=== PATIENT | male | born 1965 | race Caucasian/White ===

== ENCOUNTER 2020-11-05 10:30 | Inpatient (IN) | payer MEDICAID ==
[2020-10-23 15:32] LABS: BASOPHILS % (AUTO) 0.6 % (0-1); EOSINOPHILS # (AUTO) 0.1 X10'3 (0-0.9); EOSINOPHILS % (AUTO) 1.5 % (0-6); LYMPHOCYTES # (AUTO) 2.1 X10'3 (1.1-4.8); LYMPHOCYTES % (AUTO) 26.2 % (21-51); MEAN CORPUSCULAR HEMOGLOBIN 30.7 PG (27.0-31.0); MEAN CORPUSCULAR HGB CONC 33.8 g/dL (33.0-36.5); MEAN CORPUSCULAR VOLUME 90.9 FL (78-98); MEAN PLATELET VOLUME 7.7 FL (7.4-10.4); MONOCYTES # (AUTO) 0.6 X10'3 (0-0.9); MONOCYTES % (AUTO) 7.8 % (2-12); NEUTROPHILS # (AUTO) 5.1 X10'3 (1.8-7.7); NEUTROPHILS % (AUTO) 63.9 % (42-75); PRE OP HEMATOCRIT 45.2 % (42.0-52.0); PRE OP HEMOGLOBIN 15.3 g/dL (14.0-17.9); PRE OP PLATELET COUNT 258 X10'3 (140-440); RED BLOOD COUNT 4.97 X10'6 (4.70-6.10); RED CELL DISTRIBUTION WIDTH 13.7 % (11.5-14.5)
[2020-10-23 15:50] LABS: ALBUMIN 3.9 G/DL (3.4-5.0); ALKALINE PHOSPHATASE 62 IU/L (46-116); BLOOD UREA NITROGEN 22 MG/DL (7-18); BUN/CREATININE RATIO 20.8 (5.4-32.0); CALCIUM 8.9 MG/DL (8.5-10.1); CHLORIDE 106 MMOL/L (99-107); CREATININE 1.06 MG/DL (0.60-1.10); PRE OP ALT 43 U/L (30-65); PRE OP ANION GAP 7 (8-16); PRE OP AST 16 U/L (10-37); PRE OP BILIRUB, TOTAL 0.4 MG/DL (0.0-1.0); PRE OP GLUCOSE 97 MG/DL (70-104); PRE OP SODIUM 141 MMOL/L (135-145); TOTAL CARBON DIOXIDE 27.6 MMOL/L (24-32); TOTAL PROTEIN 7.7 G/DL (6.4-8.2); eGFR 73 ML/MIN
[~2020-11-05] VITALS: Ht 190.5 cm; Wt 145.2 kg
[~2020-11-05 10:30] MED LIST: HYDR-4353 PO; ceFAZolin inj. 3,000 MG in normal saline 100ml IV soln 100 ML IV ONE; famotidine 20mg tablet PO ONE; ringers solution, lacted 1,000 ML IV SCH; vancomycin 1,500 MG in NS 300ml IV soln IV ONE
[2020-11-11] VITALS (20 sets, daily range): BP systolic 94–150; BP diastolic 54–85
[2020-11-11] MEDS ORDERED: ringers solution, lacted 1,000 ML IV SCH ×2 (05:00→09:50)
[2020-11-11] MEDS ORDERED: ceFAZolin inj. 3,000 MG in normal saline 100ml IV soln 100 ML IV ONE (05:30)
[2020-11-11] MEDS ORDERED: famotidine 20mg tablet PO ONE (05:30)
[2020-11-11] MEDS ORDERED: vancomycin 1,500 MG in NS 300ml IV soln IV ONE (05:30)
[2020-11-11] MEDS ORDERED: tetracaine 1% (10mg/ml) pres. free inj. ONE (08:31)
[2020-11-11] MEDS ORDERED: ketorolac trometh. 30mg/ml inj. ONE (08:43)
[2020-11-11] MEDS ORDERED: ROPIVAcaine 0.5% (5mg/ml) 30ml vial ONE (08:44)
[2020-11-11] MEDS ORDERED: sevoflurane 250ml liquid IH ONE (08:49)
[2020-11-11] MEDS ORDERED: LIDOcaine 1%/PF 5ML 10 MG/ML VIAL ONE (08:49)
[2020-11-11] MEDS ORDERED: morphine /PF 1mg/ml 10ml inj. ONE (09:00)
[2020-11-11] MEDS ORDERED: MIDAZolam 1mg/ml 10ml vial ONE (09:00)
[2020-11-11] MEDS ORDERED: NORMAL SALINE IV ONE ×2 (09:00→09:45)
[2020-11-11] MEDS ORDERED: TRANEXAMIC ACID IV ONE ×2 (09:00→09:45)
[2020-11-11] MEDS ORDERED: propofol inj 20 ML IV ONE ×3 (09:23)
[2020-11-11] MEDS ORDERED: diphenhydrAMINE 50 mg/ml inj ONE (09:34)
[2020-11-11] MEDS ORDERED: labetalol 20mg/4ml (5mg/ml) syringe IV PRN (09:50)
[2020-11-11] MEDS ORDERED: ondansetron/PF 4mg/2ml inj IV PRN ×3 (09:50→11:40)
[2020-11-11] MEDS ORDERED: ROPIVAcaine 0.2% (10 MG/5 ML) BOLUS INJECTION ADDCANAL PRN (09:50)
[2020-11-11] MEDS ORDERED: morphine 2 MG/ML inj. syringe IV PRN (09:50)
[2020-11-11] MEDS ORDERED: hydrALAZINE 20mg/ml inj. IV PRN (09:50)
[2020-11-11] MEDS ORDERED: diphenhydrAMINE 50 mg/ml inj IV PRN (09:50)
[2020-11-11] MEDS ORDERED: naloxone 2mg/2ml inj 2 MG in normal saline 500ml IV soln 500 ML IV PRN (09:50)
[2020-11-11] MEDS ORDERED: proCHLORperazine 10 MG/2 ml inj IV PRN (09:50)
[2020-11-11] MEDS ORDERED: morphine 4 MG/ML inj SYRINge IV PRN (09:50)
[2020-11-11] MEDS ORDERED: acetaminophen 1,000mg/100ml IV 100 ML IV PRN (09:50)
[2020-11-11] MEDS ORDERED: meperidine/PF 25mg/ml syringe IV PRN ×3 (09:50)
--- NOTE | 2020-11-11 11:39 | NUR ---
Report called to receiving nurse, Eliana DUDLEY. Transferred via [facility] bed Belongings . Special Issues communicated to receiving nurse. 18g to left hand with LR running at 100/hr. Dressing CDI, onq attached. Patient denies pain, offers no complaints. Education provided. Updated patient's sisterHenny. Addendum: 11/11/20 at 1359 by Angela Amador RN Time 1339 sent to floor
[2020-11-11] MEDS ORDERED: oxyCODONE IR 5mg (immed. release) tablet PO PRN (11:40)
[2020-11-11] MEDS ORDERED: diphenhydrAMINE 25mg capsule PO PRN ×2 (11:40)
[2020-11-11] MEDS ORDERED: HYDROmorphone 1 mg/ml syringe IV PRN (11:40)
[2020-11-11] MEDS ORDERED: acetaminophen 325mg tablet PO PRN (11:40)
[2020-11-11] MEDS ORDERED: HYDROmorphone inj. 0.5 MG/0.5 ML DISP.SYRIN IV PRN (11:40)
[2020-11-11] MEDS ORDERED: bisacodyl 10mg suppository rectal RC PRN (11:40)
[2020-11-11] MEDS ORDERED: magnesium hydroxide 30ml (MOM) UD suspension PO PRN (11:40)
--- NOTE | 2020-11-11 12:09 | NUR ---
Received from OR via hosptial bed, accompanied by Anesthesiologist Dr. Moreno and report given by Anesthesiolgist. 18g to left hand. OnQ attached to picco. cold pack and sleeve. Patient denies pain, denies N/V. Moves upper extremities. Numb to mid thigh.
[2020-11-11] MEDS: ROPIVAcaine 0.2%/PF PUMP/bolus 550 ML ADDCANAL SCH (12:37)
[2020-11-11] MEDS: acetaminophen 325mg tablet PO SCH ×2 (14:00→20:59)
[2020-11-11] MEDS: ceFAZolin/D5W- 1GM premix 50 ML IV SCH (16:11)
[2020-11-11] MEDS: potassium cl 20mEq in 1/2 NS 1,000 ML IV SCH ×2 (17:09→19:40)
--- NOTE | 2020-11-11 18:23 | NUR ---
Problems reprioritized. Patient report given, questions answered & plan of care reviewed with Hilda DUDLEY.
[2020-11-11] MEDS ORDERED: vancomycin/NS 1 GM ADD-VANTAGE 250 ML IV SCH (20:00)
[2020-11-11] MEDS ORDERED: sennosides 8.6mg tablet PO SCH (21:00)
[2020-11-12] VITALS: BP 123/73
[2020-11-12] MEDS: ceFAZolin/D5W- 1GM premix 50 ML IV SCH (00:30)
[2020-11-12] MEDS: acetaminophen 325mg tablet PO SCH ×2 (02:00→08:24)
[2020-11-12] MEDS: potassium cl 20mEq in 1/2 NS 1,000 ML IV SCH ×2 (03:40→11:40)
[2020-11-12] MEDS: oxyCODONE IR 5mg (immed. release) tablet PO PRN ×2 (05:49→12:07)
--- NOTE | 2020-11-12 06:14 | NUR ---
REPORT GIVEN TO LUIS ENRIQUE HOLLIS.
--- NOTE | 2020-11-12 06:35 | NUR ---
Patient in room [facility]. I have received report from LUIS ENRIQUE SILVESTRE and had the opportunity to ask questions and assume patient care.
[2020-11-12 06:37] LABS: BASOPHILS % (AUTO) 0.3 % (0-1); EOSINOPHILS # (AUTO) 0.2 X10'3 (0-0.9); HEMOGLOBIN 13.4 g/dl (14.0-17.9); LYMPHOCYTES # (AUTO) 1.5 X10'3 (1.1-4.8); LYMPHOCYTES % (AUTO) 19.7 % (21-51); MEAN CORPUSCULAR HEMOGLOBIN 31.2 PG (27.0-31.0); MEAN CORPUSCULAR HGB CONC 34.4 g/dL (33.0-36.5); MEAN CORPUSCULAR VOLUME 90.7 FL (78-98); MEAN PLATELET VOLUME 7.7 FL (7.4-10.4); MONOCYTES # (AUTO) 0.6 X10'3 (0-0.9); MONOCYTES % (AUTO) 8.1 % (2-12); NEUTROPHILS # (AUTO) 5.4 X10'3 (1.8-7.7); NEUTROPHILS % (AUTO) 69.9 % (42-75); PLATELET COUNT 215 X10'3 (140-440); RED CELL DISTRIBUTION WIDTH 13.2 % (11.5-14.5); WHITE BLOOD COUNT 7.7 X10'3 (4.5-11.0)
[2020-11-12 06:49] LABS: ANION GAP 5 (8-16); CHLORIDE 104 MMOL/L (99-107); POTASSIUM 3.9 MMOL/L (3.5-5.1); SODIUM 138 MMOL/L (135-145); TOTAL CARBON DIOXIDE 29.2 MMOL/L (24-32)
[2020-11-12 07:00] VITALS: BP 106/67
[2020-11-12] MEDS ORDERED: aspirin 325mg tablet PO SCH (08:30)
[2020-11-12] MEDS: ROPIVAcaine 0.2%/PF PUMP/bolus 550 ML ADDCANAL SCH (12:09)
--- NOTE | 2020-11-12 12:45 | NUR ---
DC INSTRUCTIONS GIVEN TO PT, QUESTIONS ANSWERED. IV REMOVED, CANULA INTACT. PT BLED, PRESSURE BANDAGE APPLIED. NEW ON Q BALL GIVEN SET AT 14ML/HR. ADVISED PT HE CAN ADJUST SETTINGS ON THE ON Q BALL. ASSISTED PT WITH GATHERING BELONGINGS. WHEELED DOWN TO PRIVATE VEHICLE IN STABLE CONDITION.
[2020-11-13] MEDS ORDERED: acetaminophen 325mg tablet PO PRN (11:40)
--- NOTE | 2020-11-13 13:58 | NUR ---
CASE MANAGEMENT DISCHARGE FOLLOW UP: T/c to pt's number, pt not home, gentleman who answered phone states that pt is at his girlfriend's house but that when he saw the pt this morning he was "doing good." Will attempt to contact girlfriend. 1359 Attempt to contact girlfriend, Priscilla, unsuccessful. Addendum: 11/13/20 at 1415 by Erica Ceballos RN 1402 t/c to pt's cell number. Pt reports that he is doing okay, but having significant pain. Denies SOB, CP, fever. Verbalizes understanding of s/sx requiring further evaluation/emergent assistance. Upon inquiry, pt states not taking aspirin, educated pt that aspirin is to prevent clot formation not for pain control, pt verbalizes understanding and states he will start taking as ordered. Pt states that he also has not been taking ibuprofen, advised that he take as needed per MD order for pain relief due to swelling and to take with food, pt verbalizes understanding. States that he is taking the [place] as prescribed and it is helping some. States that he is using cool packs and IS. Pt verbalizes understanding of the importance in making/keeping follow-up appointments. Pt states no further questions/concerns at this time.
== END 2020-11-12 12:37 | disposition home or self-care (01) | DRG 302 ==
LOC: EDSTATUS 11:45 → PAS IN 11-11 05:54 → UNDOADMIN 11-11 05:54 → EDSTATUS 11-11 08:45 → PAS IN 11-11 11:35 → SUR 3N 11-11 13:50
PROVIDERS: ADMIT Orthopaedic Surgery; ATTEND Orthopaedic Surgery
PROC: 8E0YXBZ Computer Assisted Procedure of Lower Extremity (ICD-10-PCS; 2020-11-11)
PROC: 8E0Y0CZ Robotic Assisted Procedure of Lower Extremity, Open Approach (ICD-10-PCS; 2020-11-11)
PROC: 3E0T3BZ Introduction of Anesthetic Agent into Peripheral Nerves and Plexi, Percutaneous Approach (ICD-10-PCS; 2020-11-11)
PROC: 0SRD0J9 Replacement of Left Knee Joint with Synthetic Substitute, Cemented, Open Approach (ICD-10-PCS; principal; 2020-11-11 08:49)
PROC: 5A09357 Assistance with Respiratory Ventilation, Less than 24 Consecutive Hours, Continuous Positive Airway Pressure (ICD-10-PCS; 2020-11-12)
DX: M17.32 Unilateral post-traumatic osteoarthritis, left knee (principal); D62 Acute posthemorrhagic anemia; E66.01 Morbid (severe) obesity due to excess calories; M21.062 Valgus deformity, not elsewhere classified, left knee; G47.33 Obstructive sleep apnea (adult) (pediatric); Z68.41 Body mass index [BMI] 40.0-44.9, adult; Z79.899 Other long term (current) drug therapy
CPT/HCPCS: 36415; 80051; 80053; 82948; 85025; 87081; 87635; 93005; 97110; 97116; 97161; 97530; A4215; A6258; A7000; C1713; C1758; C1776; G0378; J0690; J1200; J1885; J2250; J2270; J2704; J2795; J3370; J3480; J7040; J7120